=== PATIENT | female | born 1965 | race Caucasian/White ===

== ENCOUNTER → 2017-02-22 | Outpatient (CLI) | payer BC ==
--- NOTE | ~2017-02-22 | ECH ---
Transthoracic Echocardiography Report (TTE) Demographics Patient Name SAFIA SMITH Date of Study 02/22/2017 Patient Number [id number] Visit Number [id number] Date of 1965 Room Number Accession Number [id number] Gender Female Age 51 year(s) Referring King Bud Renteria MD Field Captain Shannon Mclain Physician Janey Cuello [facility] Physician Interpreting Hieu BROWN Net Trainer Physician [place] Supervising Ordering Physician King Bud Renteria MD, MD/MLP Nurse Stress Prep Manager Conclusions Contractility Score Summary Normal Left Ventricular contractility was noted. Summary Technically adequate exam. The interatrial septum appears aneurysmal. Trivial mitral regurgitation by color Doppler. There is trivial aortic regurgitation by color Doppler. Recommendation The patient will be given the results of this study by the physician who ordered the exam. Procedure Type of Study TTE procedure:Echo Complete SF. Procedure Date Date: 02/22/2017 Start: 11:02 AM Technical Quality: Adequate visualization Indications:Chest pain and Shortness of breath. Appropriate Use Criteria: 9 Height: 66 inches Weight: 145 pounds BSA: 1.74 m Rhythm: NSR HR: 71 bpm BP: 107/70 mmHg M-Mode/2D Measurements LV Diastolic Dimension: 4.67 cm LV Systolic Dimension: 3.01 cm LV Septum Diastolic: 0.56 cm LV PW Diastolic: 0.59 cm AO Root Dimension: 2.53 cm Cardiac Output: 3.16 l/min LA Dimension: 2.69 cm Cardiac Index: 1.82 l/min*m RV Diastolic Dimension: 2.78 cm LA volume index: 21 ml/m LVOT: 1.82 cm LVOT VTI: 17.1 cm RV Base: 2.6 cm LV Stroke volume: 44.46 ml RV Mid: 2.2 cm LV Stroke volume index: 25.55 ml/m TAPSE: 1.6 cm TDI-S': 12 cm/s Doppler Measurements AV Peak Velocity: 1.2 m/s MV Peak E-Wave: 0.44 m/s AV Peak Gradient: 5.76 mmHg MV Peak A-Wave: 0.38 m/s AV Mean Gradient: 3.37 mmHg MV E/A Ratio: 1.16 LVOT Peak Velocity: 0.88 m/s MV P1/2t: 78.1 msec AV Area (Continuity):2.03 cm MV Deceleration Time: 285.9 msec TR Velocity:1.98 m/s MV Area (PHT): 2.82 cm TR Gradient:15.68 mmHg PV Peak Velocity: 0.75 m/s Estimated RAP:3 mmHg PV Peak Gradient: 2.24 mmHg Estimated RVSP: 19 mmHg Estimated PASP: 18.68 mmHg E' Septal Velocity: 0.09 m/s A' Septal Velocity: 0.08 m/s E' Lateral Velocity: 0.11 m/s A' Lateral Velocity: 0.1 m/s RA Area: 10.67 cm Findings Left Ventricle Normal left ventricle size and function. Diastolic assessment reveals normal relaxation. Right Ventricle Normal right ventricle structure and function. Left Atrium Normal left atrial size. The interatrial septum appears aneurysmal. Right Atrium Normal right atrial size. Mitral Valve Trivial mitral regurgitation by color Doppler. Aortic Valve The aortic valve is mildly sclerotic. There is trivial aortic regurgitation by color Doppler. Tricuspid Valve Normal tricuspid valve structure and function. Trivial tricuspid regurgitation by color Doppler. Normal pulmonary pressures. Pulmonic Valve Normal pulmonic valve structure and function. Trivial pulmonic valve regurgitation by color Doppler. Pericardial Effusion No evidence of pericardial effusion. Miscellaneous Visualized portions of the aortic root and ascending aorta appear normal in size. Pleural Effusion No evidence of pleural effusion. Contractility Score LV regional wall motion:(0-Non visualized 1-Normal 2-Hypokinesis 3-Akinesis 4-Dyskinesis 5-Aneurysm) Signature
== END | disposition home or self-care (01) ==
LOC: CARD 10:49
DX: R07.9 Chest pain, unspecified (principal); R06.02 Shortness of breath